=== PATIENT | male | born 1970 | race Caucasian/White ===

== ENCOUNTER → 2023-02-25 08:48 | Outpatient (CLI) | payer OTHER, SELFPAY ==
[2023-02-25 09:49] LABS: Add Manual Diff / Slide Review NO; Basophils Absolute Auto 100 /uL (0-100); Basophils Percent Auto 0.7 % (0-2); Eosinophils Absolute Auto 200 /uL (0-450); Eosinophils Percent Auto 1.9 % (2-4); Hematocrit 42.5 % (41-53); Hemoglobin 14.6 g/dL (13.5-17.5); Lymphocytes Absolute Auto 3500 /uL (1100-4500); Lymphocytes Percent Auto 40.4 % (25-40); Mean Corpuscular HGB Conc 34.3 % (30-36); Mean Corpuscular Volume 96.1 fL (80-100); Monocytes Absolute Auto 700 /uL (0-900); Monocytes Percent Auto 8.2 % (3-14); Neutrophils Absolute Auto 4200 /uL (1500-7000); Neutrophils Percent Auto 48.8 % (50-75); Platelet Count 252 X10^3/uL (150-400); Red Blood Cell Count 4.43 X10^6/uL (4.5-5.9); Red Cell Distribution Width 13.3 % (11.6-14.8); White Blood Cell Count 8.6 X10^3/uL (4.5-11.0)
[2023-02-25 09:55] LABS: Hemoglobin A1C% w Est Avg Glu 5.5 % (4.0-6.0)
[2023-02-25 10:14] LABS: Alanine Aminotransferase 42 IU/L (<50); Albumin 4.7 g/dL (3.5-5.0); Albumin Globulin Ratio 1.5 (1.0-2.8); Alkaline Phosphatase 86 U/L (38-126); Aspartate Aminotransferase 31 IU/L (17-59); BUN Creatinine Ratio 15.8 (6-22); Bilirubin Total 0.4 mg/dL (0.2-1.3); Blood Urea Nitrogen 12 mg/dL (9-20); Carbon Dioxide 26 mmol/L (22-32); Chloride 103 mmol/L (98-107); Cholesterol 253 mg/dL (140-199); Estimated Glomerular Filt Rate > 60 mL/min (>60); Globulin 3.1 g/dL (1.7-4.1); Glucose 94 mg/dL (70-100); HDL Cholesterol 36 mg/dL (40-60); HEMOLYSIS < 15 (0-50); Potassium 4.1 mmol/L (3.4-5.1); Sodium 138 mmol/L (137-145); Total Protein 7.8 g/dL (6.3-8.2); Triglycerides 433 mg/dL (35-150)
[2023-02-25 14:31] LABS: Microalbumin Urine Random < 0.6 mg/dL (0-1.6)
[2023-02-25 14:40] LABS: Creatinine Urine Random 58.7 mg/dL
[2023-02-25 15:34] LABS: HIV 1 & 2 Ab/Ag 4th Gen Combo NEGATIVE (NEGATIVE); Hep C Virus Ab w/Reflex Quant NEGATIVE s/c (NEGATIVE)
== END ==
PROVIDERS: PCP Family Medicine; Referring Provider Family Medicine; Visit Provider Family Medicine
DX: Z00.00 Encounter for general adult medical examination without abnormal findings (principal); I10 Essential (primary) hypertension; F43.10 Post-traumatic stress disorder, unspecified; F17.200 Nicotine dependence, unspecified, uncomplicated
CPT/HCPCS: 36415; 80053; 80061; 82043; 82570; 83036; 85025; 86803; 87389

== ENCOUNTER 2023-07-03 09:17 | Day surgery (SDC) | payer OTHER, SELFPAY ==
--- NOTE | 2023-07-03 | PATH_ITS ---
[facility] Accession Number: [id number] No. of containers..01 Tissue . 01 Material submitted: . sigmoid colon - SIGMOID POLYPS . 01 Diagnosis: SIGMOID COLON POLYPS: Hyperplastic polyps. [facility] 07/10/2023 1445 Local . 01 Electronically signed: . Ag Shay MD, PhD, Pathologist NPI- [id number] . 01 Gross description: . SIGMOID POLYPS: Received in formalin are 3 fragment(s) of moreno, soft tissue measuring 0.4 x 0.3 x 0.3 cm to 0.7 x 0.3 x 0.3 cm submitted entirely in 1 cassette(s) /SHELLEY 07/07/2023 2318 Local . 01 Pathologist provided ICD-10: K63.5 . 01 CPT . 688358 Specimen Comment: A courtesy copy of this report has been sent to [phone] Performed at: 01 [facility] [address] [place] [address], [place], [place] [id number] MD Shilo Mcmillan MD Phone: [phone]
[2023-07-03 09:49] VITALS: BP 144/87; PULSE 82; RESP 16; TEMP 36.8; O2SAT 98; BMI 28.8
[2023-07-03] MEDS: LACTATED RINGERS 1,000 ML 42 ML IV (10:00)
--- NOTE | 2023-07-03 10:55 | PM.HP.1 ---
History of Present Illness History of Present Illness Date Patient Seen: 07/03/23 Time Patient Seen: 10:55 Chief complaint: Colonoscopy Narrative: Bryant Crews is a 53-year-old man who is here for colonoscopy. He has never had 1 before. No known family history of colon cancer. [facility], [facility] Medical History (Updated 07/03/23 @ 10:56 by Erik Modi MD) Mixed hyperlipidemia Sleep apnea (~2013) Anxiety (~2013) Tinnitus (~2014) Psoriasis (~2012) Tobacco dependence PTSD (post-traumatic stress disorder) (~2013) Benign essential HTN Family History (Updated 02/26/23 @ 21:19 by Katalina Cline) Father History of heart disease Mother Diabetes mellitus Brother Pneumonia Social History household members: spouse Smoking Status: Current every day smoker Meds Home Medications and Allergies Home Medications Medication Instructions Recorded Confirmed Type acetaminophen 325 mg tablet 650 mg PO Q6H PRN Muscle Pain 02/25/23 07/03/23 History (Tylenol) clobetasol 0.05 % topical cream 1 applic topical QAM AND QPM #45 02/25/23 07/03/23 Rx grams ibuprofen 200 mg tablet 400 mg PO Q6H 02/25/23 07/03/23 History varenicline 1 mg tablet (Chantix) 1 mg PO BID 6 months #360 tabs 03/25/23 07/03/23 Rx peg 3350-sod sulf,cpsoi-fez-hvy 1,000 ml PO DIRECTED #2,000 mL 05/30/23 Rx 178.7-7.3-0.5-1.12-0.9 gram oral soln (Suflave) Allergies Allergy/AdvReac Type Severity Reaction Status Date / Time No Known Drug Allergies Allergy Verified 07/03/23 09:44 Exam Vital Signs (past 8 hours): - 07/03/23 09:49 Temperature 98.3 F Pulse Rate 82 Respiratory Rate 16 Blood Pressure 144/87 H Pulse Oximetry 98 Oxygen Delivery Method Room Air Oxygen Delivery Method Room Air Const General: No acute distress Resp Effort & Inspection: normal respiratory effort Assessment & Plan Assessment and plan (1) Colon cancer screening: Status: Acute Plan We reviewed the risks and benefits of colonoscopy for colon cancer screening and he would like to proceed.
--- NOTE | 2023-07-03 12:22 | PM.OP.COLON ---
Operative Date/Time/Diagnoses Date of procedure: 07/03/23 Time of procedure: 12:22 Pre-op diagnosis: Colon cancer screening Post-op diagnosis: same Procedure & Clinicians Study performed: Colonoscopy Same procedure as scheduled: Yes Surgeon: Erik Modi Procedure Notes Procedure in detail: Surgeon: Erik Modi MD Anesthesia: Jewel Ortiz D.O. Procedure: The patient was brought to the endoscopy suite, placed in left lateral decubitus position. The patient was connected to monitoring devices. A time-out was performed. Sedation was administered. Once the patient was adequately sedated, a digital rectal exam was performed and was normal. The scope was then inserted and advanced to the cecum where the appendiceal orifice was identified and photographed. The scope was then slowly withdrawn over greater than 6 minutes. The mucosa was thoroughly inspected. There were 3 polyps in the distal sigmoid colon, each roughly debris mm and each removed with a cold snare. The scope was retroflexed in the rectum. No other abnormalities were seen. The scope was straightened and removed. The patient was awakened and brought to recovery. Scope withdrawal time: 15 minutes Sedation time: 18 minutes EBL: 3 mL Findings: 3 small polyps in the distal sigmoid or upper rectum Post-procedure Disposition: PACU
[2023-07-03 12:25] VITALS: BP 135/90; PULSE 78; RESP 16; TEMP 36.2; O2SAT 98
[2023-07-03 12:32] VITALS: BP 144/85; PULSE 71; RESP 16; TEMP 36.8; O2SAT 98
--- NOTE | 2023-07-03 12:39 | SUR.PHASEII ---
IV removed by Ren Rendon, [facility] tech.
== END 2023-07-03 12:36 | disposition home or self-care (01) ==
PROVIDERS: PCP Family Medicine; Referring Provider Surgery; Visit Provider Surgery
PROC: 0DJD8ZZ Inspection of Lower Intestinal Tract, Via Natural or Artificial Opening Endoscopic (ICD-10-PCS; CPT 45378; principal; 2023-07-03 10:15)
DX: Z12.11 Encounter for screening for malignant neoplasm of colon (principal); K63.5 Polyp of colon
CPT/HCPCS: 45385; J2704

== ENCOUNTER → 2023-12-19 09:07 | Outpatient (CLI) | payer OTHER, SELFPAY ==
[2023-12-19 10:30] LABS: Cholesterol 157 mg/dL (140-199); HDL Cholesterol 39 mg/dL (40-60); LDL Cholesterol Calculated 81 mg/dL (<100); Triglycerides 187 mg/dL (35-150)
== END ==
PROVIDERS: PCP Family Medicine; Referring Provider Family Medicine; Visit Provider Family Medicine
DX: E78.2 Mixed hyperlipidemia (principal)
CPT/HCPCS: 36415; 80061

== ENCOUNTER → 2024-01-29 15:01 | Outpatient (CLI) | payer OTHER, SELFPAY ==
--- NOTE | 2024-01-29 15:01 | DI.NM.S_ITS ---
PROCEDURE: NM EXERCISE TREADMILL NON NUC COMPARISON: None. INDICATIONS: chest pain FINDINGS: The patient exercised for 6 minutes and 46 seconds, reaching 104% of maximum predicted heart rate (7.0METs, ARON +31%). Appropriate BP response to exercise. No angina and no diagnostic ST changes during exercise or recovery. Occasional PVCs during recovery. IMPRESSION: Low risk, normal treadmill ECG only stress test from inducible ischemia standpoint. Moderately reduced exercise tolerance (7.0METs, ARON +31%). Dictated by: Carley Ramirez MD on 01/30/2024 at 16:45 Approved by: Carley Ramirez MD on 01/30/2024 at 16:47
== END ==
PROVIDERS: PCP Family Medicine; Referring Provider Family Medicine; Visit Provider Family Medicine
DX: E78.2 Mixed hyperlipidemia (principal); F17.200 Nicotine dependence, unspecified, uncomplicated; I10 Essential (primary) hypertension; R07.9 Chest pain, unspecified
CPT/HCPCS: 93017

== ENCOUNTER → 2024-04-07 11:38 | Outpatient (CLI) | payer OTHER, SELFPAY ==
--- NOTE | 2024-04-07 11:40 | DI.CT.S_ITS ---
PROCEDURE: CT LUNG LOW DOSE SCREENING INDICATIONS: screening TECHNIQUE: Noncontrast 2.0-2.5 mm thick sections acquired from the pulmonary apices to the posterior costophrenic angles. 7 mm thick axial MIP, and 5 mm coronal and sagittal reformats were then acquired. For radiation dose reduction, the following was used: automated exposure control, adjustment of mA and/or kV according to patient size. COMPARISON: None. FINDINGS: Image quality: Diagnostic. Lower Neck: No enlarged lymph nodes. Thyroid: No thyroid nodules which require sonographic follow up, per consensus guidelines. Axillae: No enlarged lymph nodes. Chest Wall: Unremarkable. Bones: Unremarkable. Lungs and Pleura: No pneumothorax or pleural effusions. Small juxta fissural nodules are seen along right minor fissure compatible with pleural lymph nodes. No consolidation or suspicious nodules. Heart: Heart size is normal. No pericardial effusion. Thoracic Vessels: The aorta and pulmonary arteries demonstrate normal size. Mediastinum and Katerina: No enlarged lymph nodes. Esophagus: No wall thickening. No hiatal hernia. Upper Abdomen: Liver is hypoattenuating, consistent with diffuse hepatic steatosis. Visualized upper abdomen solid organs and bowel loops appear normal. IMPRESSION: No suspicious pulmonary nodules. LUNG-RADS 1; continued annual screening, if eligible. Clinically Significant Non-pulmonary Findings: Hepatic steatosis. Approved by: Ozzie Tinajero M.D. on 04/07/2024 at 21:08
== END ==
PROVIDERS: PCP Family Medicine; Referring Provider Family Medicine; Visit Provider Family Medicine
DX: K76.0 Fatty (change of) liver, not elsewhere classified (principal); F17.210 Nicotine dependence, cigarettes, uncomplicated
CPT/HCPCS: 71271